=== PATIENT | female | born 1975 | race Caucasian/White ===

== ENCOUNTER 2020-08-12 16:03 | Outpatient (CLI) | payer BC, SELFPAY | END 2020-08-12 16:04 | disposition home or self-care (01) | LOC: ANHCOVIDVC 16:03 | PROVIDERS: PCP Family Medicine | DX: Z23 Encounter for immunization (principal) | CPT/HCPCS: 0001A; 91300 ==

== ENCOUNTER 2020-08-21 08:07 | Emergency (ER) | payer OTHER, BC, SELFPAY ==
[2020-08-21 08:13] VITALS: BP 170/87; PULSE 84; RESP 16; TEMP 37.2; O2SAT 98
--- NOTE | 2020-08-21 08:41 | ED.WOUNDLAC ---
HPI - Wound/Laceration General Chief Complaint: Wound/Laceration Stated Complaint: lt hand finger laceration Time Seen by Provider: 08/21/20 08:24 Source: patient and RN notes reviewed Mode of arrival: ambulatory Limitations: no limitations History of Present Illness HPI narrative: Patient presents today complaining of a laceration to her left second finger that occurred just prior to arrival on the very large newspaper stuffer while at work at [employer]. Wound was cleaned prior to arrival, but patient sought treatment today because it would not stop bleeding. She is currently pain-free. Up-to-date on tetanus vaccine. Denies numbness or tingling in the finger. Related Data Home Medications Medication Instructions Recorded Confirmed hydrochlorothiazide 12.5 mg PO DAILY 08/21/20 08/21/20 Allergies Allergy/AdvReac Type Severity Reaction Status Date / Time Penicillins Allergy Unknown Pt does Verified 08/21/20 08:09 not remember reaction Review of Systems Review of Systems: Narrative: CONSTITUTIONAL: Denies body aches, fever, chills, or sweats. EYES: Denies visual changes, redness, or discharge. ENT: Denies rhinorrhea, congestion, sore throat, or otalgia. CARDIOVASCULAR: Denies chest pain, palpitations, or edema. RESPIRATORY: Denies cough or dyspnea. GASTROINTESTINAL: Denies abdominal pain, nausea, vomiting, or diarrhea. GENITOURINARY: Denies dysuria or hematuria. SKIN: Denies rash, itching. Laceration to left second finger MUSCULOSKELETAL: Denies back pain, joint pain, or myalgia. NEUROLOGIC: Denies headache, numbness, tingling, or weakness. PSYCH: Denies depression or anxiety. [facility] Surgical History Surgical History Hx of cholecystectomy Family History Family History Mother Diabetes mellitus Family history of glaucoma Hypertension Family history of cardiovascular disease Cerebrovascular accident Father Family history of glaucoma Hypertension Grandparent Family history of glaucoma Hypertension Family history of cardiovascular disease Social History Social History Smoking status: Never smoker Alcohol intake: current Comments At time of signature, I have reviewed and agree with nursing past medical, surgical, social and family history unless otherwise noted. Please see nursing chart for further information. There is no relevant family history pertinent to the presenting complaint Exam Narrative: Exam Narrative: GENERAL: Well-appearing, well-nourished, and in no acute distress. HEAD: Normocephalic, atraumatic. EYES: EOMI. No redness or drainage. Conjunctivae normal. ENT: Mucous membranes pink and moist. NECK: Normal AROM. CHEST: No respiratory distress. EXTREMITIES: Normal range of motion. No edema. SKIN: Warm, dry, no rash. Capillary refill normal. Normal skin turgor. 1.5 cm partial-thickness flap laceration to the tip of the left second finger with no active bleeding. Distal sensation intact. Capillary refill normal. Full AROM. No nail involvement. NEURO: No focal deficits. Alert and oriented x3. Gait steady. PSYCH: Normal affect. No signs of depression or anxiety. Course Vital Signs Vital signs: Vital Signs Temperature 98.9 F 08/21/20 08:13 Pulse Rate 84 08/21/20 08:13 Respiratory Rate 16 08/21/20 08:13 Blood Pressure 170/87 H 08/21/20 08:13 Pulse Oximetry 98 08/21/20 08:13 Temperature 98.9 F 08/21/20 08:13 Pulse Rate 84 08/21/20 08:13 Respiratory Rate 16 08/21/20 08:13 Blood Pressure 170/87 H 08/21/20 08:13 Pulse Oximetry 98 08/21/20 08:13 Reviewed. Pt has been instructed to follow up with her PCP regarding her elevated blood pressure today. Procedures Laceration Laceration 1: Date: 08/21/20 Time: 08:41 Site: [facility]
[2020-08-21 08:45] VITALS: BP 140/80
== END 2020-08-21 08:45 | disposition home or self-care (01) ==
PROVIDERS: Emergency Provider Nurse Practitioner; PCP Family Medicine
DX: S61.211A Laceration without foreign body of left index finger without damage to nail, initial encounter (principal); W27.8XXA Contact with other nonpowered hand tool, initial encounter; Y99.0 Civilian activity done for income or pay; Y92.59 Other trade areas as the place of occurrence of the external cause; E78.00 Pure hypercholesterolemia, unspecified; E11.9 Type 2 diabetes mellitus without complications; E03.9 Hypothyroidism, unspecified
CPT/HCPCS: 12001; 99212; G0463

== ENCOUNTER 2020-09-02 16:01 | Outpatient (CLI) | payer BC, SELFPAY | END 2020-09-02 16:02 | disposition home or self-care (01) | LOC: ANHCOVIDVC 16:01 | PROVIDERS: PCP Family Medicine | DX: Z23 Encounter for immunization (principal) | CPT/HCPCS: 0002A; 91300 ==

== ENCOUNTER 2021-04-27 13:53 | Emergency (ER) | payer BC, SELFPAY ==
--- NOTE | ~2021-04-27 | XR_ITS ---
EXAMINATION: XR chest 1V portable DATE: 04/27/2021 16:46 INDICATION: Flushing. Acid reflux. TECHNIQUE: A single frontal view of the chest was obtained. COMPARISON: CT abdomen and pelvis 12/15/2014 FINDINGS: The chest demonstrates clear lungs without pneumonia, pleural effusion, or pneumothorax. Th e heart size is normal. IMPRESSION: 1. No acute cardiopulmonary disease. Reviewed, dictated and finalized at location A. UP AND LAY OUT INSPECTOR
[2021-04-27 14:08] VITALS: BP 148/81; PULSE 95; RESP 20; TEMP 36.9; O2SAT 96
--- NOTE | 2021-04-27 14:15 | PC.NURSE ---
triage vs documented in vs area of chart. per EDP/Adrien, no orders given, do not start cp protocol
--- NOTE | 2021-04-27 16:31 | ECG_ITS ---
Measurements Intervals [place] Rate: 96 P: 33 FL: 143 QRS: 49 QRSD: 101 T: 31 QT: 333 QTc: 422 Interpretive Statements SINUS RHYTHM NORMAL ECG Electronically Signed On 04-27-2021 16:34:39 WET MILLING WHEEL OPERATOR by Damian Young D.O.
[2021-04-27] MEDS: BELLADONNA ALK/PHENOB ELIX 10 ML, MAG HYDROX/ALUMINUM HYD/SIMETH 30 ML, LIDOCAINE HCL 2... PO (17:23)
[2021-04-27 17:44] LABS: Basophils Percent Auto 0.3 % (0.2-1.2); Eosinophils Absolute Auto 0.1 K/mm3 (0-0.3); Hematocrit 39.7 % (37.0-47.0); Immature Granulocyte Absolute 0.06 K/mm3 (0.00-0.031); Immature Granulocyte Percent A 0.4 % (0-0.5); Lymphocytes Absolute Auto 2.87 K/mm3 (0.9-3.2); Lymphocytes Percent Auto 21.5 % (18.3-44.2); Mean Corpuscular HGB Conc 35.3 g/dl (32-36); Mean Corpuscular Hemoglobin 27.8 pg (26-34); Mean Corpuscular Volume 78.8 fl (80-100); Mean Platelet Volume 8.3 fl (7.4-10.4); Monocytes Absolute Auto 0.7 K/mm3 (0.1-0.6); Monocytes Percent Auto 5.1 % (2.6-8.5); Neutrophils Absolute Auto 9.6 K/mm3 (1.3-6.7); Neutrophils Percent Auto 71.7 % (45.5-73.1); Platelet Count Result 263 k/mm3 (150-375); Red Blood Count 5.04 M/mm3 (4.2-5.4); Red Cell Distribution Width 12.8 % (11.5-14.5); White Blood Count 13.3 K/mm3 (4.5-10.0)
[2021-04-27 17:52] VITALS: BP 138/89; PULSE 95; RESP 16; O2SAT 96
[2021-04-27 17:58] LABS: Alanine Aminotransferase 24 U/L (4-35); Albumin Level 4.4 g/dL (3.5-5.1); Alkaline Phosphatase 125 U/L (38-126); Anion Gap 10 mmol/L (8-16); Aspartate Amino Transferase 28 U/L (14-36); Bilirubin,Total 0.5 mg/dL (0.2-1.3); Blood Urea Nitrogen 13 mg/dL (7-17); Calcium 9.5 mg/dL (8.4-10.2); Carbon Dioxide 22 mmol/L (22-30); Chloride 99 mmol/L (98-107); Estimated CRCL calculation 171 ml/min; Estimated Glomerular Filt Rate > 60; Glucose 138 mg/dL (65-110); Potassium 3.8 mmol/L (3.4-5.0); Sodium 131 mmol/L (137-145)
[2021-04-27 18:09] LABS: Troponin I < 0.012 ng/mL (0.000-0.034)
[2021-04-27 18:17] LABS: Lipase 47 U/L (23-300)
[2021-04-27 18:39] LABS: Add Urine Microscopic? YES; Appearance Urine Cloudy (Clear); Bacteria Urine Trace /hpf; Bilirubin Urine Negative (Negative); Blood Urine Negative (Negative); Color Urine Yellow (Yellow); Glucose Urine UA Negative (Negative); Ketones Urine Negative (Negative); Leukocyte Esterase Ur Negative LEU/UL (Negative); Mucus Urine Rare /lpf; Nitrate Urine Negative (Negative); Protein Urine Negative (Negative); Specific Grav Ur 1.017 (1.001-1.035); Squamous Epithelial Cell Urine Moderate /hpf (Few); Urobilinogen Urine Negative mg/dL (<2.0); WBC Urine 0-3 /hpf
--- NOTE | 2021-04-27 18:56 | ED.GENADULT ---
HPI - General Adult General Chief complaint: Anxiety Stated complaint: acid reflux, feels like heart racing Time Seen by Provider: 04/27/21 16:03 Source: patient Mode of arrival: ambulatory Limitations: no limitations History of Present Illness HPI narrative: Patient is a 45-year-old female presenting with chief complaint of feeling flushed and feeling acid reflux which has been worsened over the past 2 weeks. Patient reports yesterday her reflux was so intense that caused her to vomit twice. She always noticed that it worsens after eating. She reports today she was feeling flushed and fell off. She reports that she looked at her apple watch and noted that her heart rate was 90 to 100 bpm while at rest so she became concerned. So she called her primary care provider and they instructed her to come to the emergency department for evaluation. Patient reports this caused her to feel panicked and tearful. Patient denies ever having any chest pain, shortness of breath, syncope, lethargy, neurological deficit. Patient denies any chest pain presently. Related Data Allergies Allergy/AdvReac Type Severity Reaction Status Date / Time Penicillins Allergy Unknown Pt does Verified 02/26/21 15:06 not remember reaction Review of Systems Review of Systems: CONSTITUTIONAL: Reports feeling/denies fever, chills, or sweats. EYES: Denies visual changes, redness, or discharge. ENT: Denies rhinorrhea, congestion, sore throat, or otalgia. CARDIOVASCULAR: denies chest pain, palpitations, or edema. RESPIRATORY: Denies cough or dyspnea. GASTROINTESTINAL: Reports reflux denies abdominal pain, nausea, vomiting, or diarrhea. GENITOURINARY: Denies dysuria or hematuria. SKIN: Denies rash or itching. MUSCULOSKELETAL: Denies back pain, joint pain, or myalgia. NEUROLOGIC: Denies headache, numbness, dizziness, or weakness. PSYCHIATRIC: Denies anxiety or depression. PMFSH Surgical History Surgical History Hx of cholecystectomy Family History Family History Mother Diabetes mellitus Family history of glaucoma Hypertension Family history of cardiovascular disease Cerebrovascular accident Father Family history of glaucoma Hypertension Grandparent Family history of glaucoma Hypertension Family history of cardiovascular disease Social History Social History (Updated 02/26/21 @ 15:07 by Shena Aervalo [facility]) Smoking status: Never smoker Alcohol intake: current Exam Narrative: GENERAL: Well-appearing, well-nourished, and in no acute distress. HEAD: Normocephalic, atraumatic. EYES: PERRLA and EOMI. ENT: Nares clear, no rhinorrhea or epistaxis. Mucous membranes moist. Oropharynx without tonsillar hypertrophy exudate or other lesions. Bilateral TMs pearly serrano nonbulging NECK: Supple. No adenopathy or masses. CHEST: Nontender to palpation. Clear to auscultation. No respiratory distress. No wheezes rales or rhonchi HEART: Regular rate and rhythm. No murmur heard. Normal peripheral pulses. Nontachycardic. ABDOMEN: Soft, nontender, nondistended, normal active bowel sounds. EXTREMITIES: Normal range of motion. No edema. SKIN: Warm, dry, no rash. NEURO: No focal deficits. Alert and oriented x3. No speech abnormalities or facial asymmetry. PSYCH: Normal mood and affect. Course Vital Signs Vital signs: Vital Signs Temperature 98.5 F 04/27/21 14:08 Pulse Rate 95 04/27/21 14:08 Respiratory Rate 20 04/27/21 14:08 Blood Pressure 148/81 H 04/27/21 14:08 Pulse Oximetry 96 04/27/21 14:08 Temperature 98.5 F 04/27/21 14:08 Pulse Rate 95 04/27/21 17:52 Respiratory Rate 16 04/27/21 17:52 Blood Pressure 138/89 04/27/21 17:52 Pulse Oximetry 96 04/27/21 17:52 Medical Decision Making [facility] Narrative Medical decision making narrative: Patient has not had any chest pain or shor
== END 2021-04-27 19:16 | disposition home or self-care (01) ==
PROVIDERS: Physician Assistant; Emergency Provider Emergency Medicine; PCP Family Medicine
DX: K21.9 Gastro-esophageal reflux disease without esophagitis (principal); F41.9 Anxiety disorder, unspecified
CPT/HCPCS: 36415; 71045; 80053; 81001; 83690; 84484; 85025; 93005; 99284; A9270

== ENCOUNTER 2023-05-25 15:41 | Outpatient (CLI) | payer BC, SELFPAY ==
--- NOTE | ~2023-05-25 | MM_ITS ---
EXAMINATION: MM screening mai BI w craig HISTORY: Screening TECHNIQUE: Craniocaudal and mediolateral oblique 3-D tomosynthesis images were obtained and synthetic 2-D images were generated. CAD analysis was submitted and interpreted. COMPARISON: Comparison to multiple prior studies sequentially, with oldest reviewed study dated 10/28. BREAST PARENCHYMAL COMPOSITION: There are scattered areas of fibroglandular density. FINDINGS: There is no evidence of suspicious mass, calcification, or architectural distortion to sugg est malignancy in either breast. There has been no suspicious interval change. IMPRESSION: 1. No mammographic evidence of malignancy. 2. Recommend routine screening mammography in one year. BI-RADS Category 1: Negative Reviewed, dictated and finalized at location A. ON STAPLER
--- NOTE | ~2023-05-25 | US_ITS ---
EXAMINATION: US thyroid DATE: 05/25/2023 16:09 INDICATION: Nontoxic diffuse goiter. TECHNIQUE: Multiple ultrasound images of the thyroid were obtained. COMPARISON: None. FINDINGS: The right thyroid lobe measures 4.5 x 1.5 x 1.8 cm. The left thyroid lobe measures 4.0 x 1.1 x 1.6 c m. In the left thyroid lobe, there is a 5 mm solid, hypoechoic, wider than tall nodule with smooth m argin without echogenic foci (TI-RADS TR4). In the right thyroid lobe, there is a 16 mm solid, hypoec hoic, wider than tall nodule with ill-defined margin without echogenic foci (TR4). In the right thyro id lobe, there is a 14 mm solid, hypoechoic, wider than tall nodule with ill-defined margin without e chogenic foci (TR4). In the right thyroid lobe, there is an 8 mm solid, very hypoechoic, wider than t all nodule with smooth margin without echogenic foci (TR4). IMPRESSION: 1. Multinodular goiter. Ultrasound-guided fine-needle aspiration of the 16 mm right thyroid nodule is recommended. Reviewed, dictated and finalized at location A. OMER SERVICE OPERATOR IMPRESSION: 1. Multinodular goiter. Ultrasound-guided fine-needle aspiration of the 16 mm r ight thyroid nodule is recommended.
== END 2023-05-25 15:42 ==
PROVIDERS: PCP Family Medicine; Visit Provider Family Medicine
DX: Z12.31 Encounter for screening mammogram for malignant neoplasm of breast (principal); E04.2 Nontoxic multinodular goiter
CPT/HCPCS: 76536; 77063; 77067

== ENCOUNTER 2023-05-30 08:21 | Outpatient (CLI) | payer BC, SELFPAY ==
[2023-05-30 12:18] LABS: Thyroid Stimulating Hormone Reflex 0.072 uIU/mL (0.465-4.68)
== END 2023-05-30 08:22 | disposition home or self-care (01) ==
LOC: ANHGOSHLAB 08:24
PROVIDERS: PCP Family Medicine; Visit Provider Family Medicine
DX: Z13.29 Encounter for screening for other suspected endocrine disorder (principal)
CPT/HCPCS: 36415; 84439; 84443; 84480

== ENCOUNTER 2023-06-23 12:32 | Outpatient (CLI) | payer BC, SELFPAY ==
--- NOTE | ~2023-06-23 | US_ITS ---
EXAMINATION: US FNA w image guidance DATE: 06/23/2023 13:37 INDICATION: Nontoxic single right thyroid nodule TECHNIQUE: A time-out was performed to verify the patient's name, date of , and procedure to be performed . The procedure and its benefits and risks were discussed with the patient. Risks specifically discus sed included bleeding and infection. The patient understood the risks and agreed to proceed. The neck was prepped and draped in the usual sterile manner. 3 mL 1% lidocaine was used for local anesthesia . 6 passes were made with a 25G needle into the lesion. Appropriate needle location was documented with continuous sonographic guidance. A sterile bandage was applied. There were no immediate compli cations. FINDINGS: Grayscale ultrasound images demonstrate biopsy needles advanced into the 1.6 cm TI RADS 4 right thyro id nodule of concern. IMPRESSION: 1. Successful ultrasound-guided fine needle aspiration of a 1.6 cm TI RADS 4 right thyroid nodule of concern. Reviewed, dictated and finalized at location A. ATING MANAGER IMPRESSION: 1. Successful ultrasound-guided fine needle aspiration of a 1.6 cm TI RADS 4 r ight thyroid nodule of concern.
== END 2023-06-23 12:33 | disposition home or self-care (01) ==
LOC: ANHIMG 12:33
PROVIDERS: PCP Family Medicine; Visit Provider Family Medicine
DX: E04.1 Nontoxic single thyroid nodule (principal)
CPT/HCPCS: 10005; 88172; 88173; 88305

== ENCOUNTER 2023-10-03 15:31 | Outpatient (CLI) | payer BC, SELFPAY ==
[2023-10-03 19:35] LABS: Thyroid Stimulating Hormone 0.463 uIU/mL (0.465-4.680)
[2023-10-03 19:59] LABS: Free T4 Free Thyroxine 1.91 ng/mL (0.78-2.19)
== END 2023-10-03 15:32 | disposition home or self-care (01) ==
LOC: ANHGOSHLAB 15:32
PROVIDERS: PCP Family Medicine; Visit Provider Family Medicine
DX: E03.9 Hypothyroidism, unspecified (principal)
CPT/HCPCS: 36415; 84439; 84443

== ENCOUNTER 2024-08-02 05:16 | Day surgery (SDC) | payer OTHER, SELFPAY ==
[2024-07-17 10:44] VITALS: BMI 36.3
--- OUTSIDE RECORDS SUMMARY | 2024-08-02 05:20 | XMS_ITS | Clinical Summary ---
Author Organization [facility] Address [address] [place] [address] Care Team Providers Care Blade Filer Name Role Phone Unavailable Primary Care Provider Unavailabl e Source Comments [facility],non-owned Affiliates and Associated Physician Practices is amultiple site organization consisting of ambulatory clinics and hospital sitesin [place], [place], [place] and [place]. This disclosure is being madepursuant to the Care Everywhere program and may not contain all information available regarding this patient. Last updated 18.[facility] [employer] Social History Tobacco Use Types Packs/Day Years Used Date Smoking Tobacco: Never Assessed Sex and Gender Information Value Date Recorded Sex Assigned at Not on file Gender Identity Not on file Sexual Orientation Not on file Plan of Treatment Health Maintenance Due Date Last Done Comments COLOGUARD (AGES 45-75) - COL ON CA SCREENING 1973 COLON MONITORING 1973 COLONOSCOPY - COLON CA SCREENING 1973 CT COLONOGRAPHY - COLON CA SCREENING 1973 Colorectal Cancer Screening 1973 FIT - COLON CA SCREENING 1973 FLEX SIG - COLON CA SCREENING 1973 LIPID TESTING 1973 MAMMOGRAM 1973 PAP SMEAR 1973 HIV SCREENING 1988 HEPATITIS C SCREENING 09/21/1991 DTAP/TDAP/TD VACCINES (1 - Tdap) 1992 HEPATITIS B VACCINE (1 of 3 - 19+ 3-dose series) 1992 PNEUMOCOCCAL VACCINE 50+ (1 of 1 - PCV) 09/26/2023 ZOSTER VACCINE (1 of 2) 09/26/2023 COVID-19 VACCINE (1 - 2023-2 5 season) 2024 INFLUENZA VACCINE (#1) 2024 DEPRESSION SCREENING 06/12/2024 HIB VACCINE Aged Out No longer eligi ble based on patient's age to complete this topic HPV VACCINE Aged Out No longer eligi ble based on patient's age to complete this topic MENINGOCOCCAL (Group B) VACCINE Aged Out No longer eligible based on patient's age to complete this topic MENINGOCOCCAL VACCINE Aged Out No benita ray eligible based on patient's age to complete this topic PNEUMOCOCCAL VACCINE Aged Out No long er eligible based on patient's age to complete this topic
--- OUTSIDE RECORDS SUMMARY | 2024-08-02 05:20 | XMS_ITS | Referral Summary ---
Author Organization [facility] Address [address] [place] [address] Care Team Providers Care Marine Mechanic Name Role Phone Unavailable Primary Care Provider Unavailabl e Source Comments [facility],non-owned Affiliates and Associated Physician Practices is amultiple site organization consisting of ambulatory clinics and hospital sitesin [place], [place], [place] and [place]. This disclosure is being madepursuant to the Care Everywhere program and may not contain all information available regarding this patient. Last updated 18.[facility] Social History Tobacco Use Types Packs/Day Years Used Date Smoking Tobacco: Never Assessed Sex and Gender Information Value Date Recorded Sex Assigned at Not on file Gender Identity Not on file Sexual Orientation Not on file Plan of Treatment Not on file
--- OUTSIDE RECORDS SUMMARY | 2024-08-02 05:20 | XMS_ITS | Patient Health Summary ---
Author Organization [facility] Address [address] [place] [address] Care Team Providers Care Investor Relations Analyst Name Role Phone Unavailable Primary Care Provider Unavailabl e Note from [facility],non-owned Affiliates and Associated Physician Practices is amultiple site organization consisting of ambulatory clinics and hospital sitesin [place], [place], [place] and [place]. This disclosure is being madepursuant to the Care Everywhere program and may not contain all information available regarding this patient. Last updated 18.[facility] Social History Tobacco Use Types Packs/Day Years Used Date Smoking Tobacco: Never Assessed Sex and Gender Information Value Date Recorded Sex Assigned at Not on file Gender Identity Not on file Sexual Orientation Not on file Procedures * GROSS + MICRO EXAM(Performed 03/10/2004) Results * GROSS + MICRO EXAM (03/10/2004 10:27 AM CDT) Result CASE NUMBER [id number] Comment: ORDERING PHYSICIAN UYEN PALOMO SPECIMEN TYPE Placenta Twin Date 03/13/2004 Physician Salomon Gross Description Received in formalin, labeled `placenta twin' and consists of a twin placenta which with membranes and umbilical cord attached weighs 730 gms. The requisition that came with the placenta does not designate placenta as twin A or B, however one umbilical cord has two clips and the other has one clip. The umbilical cord with two clips is designated as twin A, the one with one clip is designated as twin B. Placenta A measures 17 x 15 x 2 cm. The umbilical cord is yellow white, attaches eccentrically at a distance of 2 cm from the nearest margin and measures 26 cm in length x 1.7 cm in diameter. The cut surface of the umbilical cord reveals three vessels. The membranes attached marginally are yellow cesar and semitranslucent. The surface is firm, blue and glistening with tortuous vessels underneath the amnion chorion. The maternal surface is dull red to serrano with intact cotyledons and has no adherent coagula. Placenta A is fused with placenta B and is by a dividing membrane. Placenta B measures 14.5 x 17 x 3.0 cm. The umbilical cord is yellow white, attaches eccentrically at a distance of 6 cm from the nearet margin and measures 28 cm in length x up to 2 cm in diameter. The cut surface reveals three vessels. the membranes attach marginally, are yellow cesar and semitranslucent. The surface is firm blue, glistening with tortuous vessels underneath the amnion chorion. The maternal surface is dull red to serrano with intact cotyledons and has no adherent coagula. Sections submitted as follows A-sections of umbilical cord and membranes from placenta A, B and C-random sections placenta A. D-dividing membrane, E-distribution sales representative sections of umbilical cord and membranes, from placenta B, F and G-random sections of placenta B. /[facility] Microscopic Exam Sections from placenta A show a three vessel umbilical cord with no pathologic changes. The chorioamniotic membranes show no pathologic changes. The chorionic villi are mature, well vascularized with syncytial knots identified. No evidence of villitis or infarction. The stratum basalis shows no pathologic changes. Sections from placenta B reveal a Three vessel umbilical cord with no pathologic changes. The chorioamniotic membranes show no evidence of meconium or inflammation. The chorionic villi are mature, and show no pathologic changes. The dividing membrane shows evidence of a dichorionic diamniotic twin placenta. GM/ Diagnosis I. Twin placenta -- Dichorionic diamniotic fused twin placenta, mature, 730 gms. -- Placenta A - Three vessel umbilical cord with no pathologic changes. - Chorioamniotic membranes with no pathologic changes. -- Placenta B - Three vessel umbilical cord with no pathologic changes. - Chorioamniotic membranes with no pathologic changes. GM/ Decker Operator [facility] Pathologist Jeanette Aly M.D. [place]. 03/15/2004 1456 <1> CPT code 62824 x2 MISCELLANEOUS SAMPLES / Unknown 03/10/2004 10:27 AM CDT 03/11/2004 7:42 AM CDT Historical Provider LAB - PATHOLOGY/C YTOLOGY ORDERABLES
[2024-08-02 06:28] VITALS: BP 145/77; PULSE 77; RESP 16; TEMP 36.2; O2SAT 97
[2024-08-02] MEDS: LACTATED RINGERS 1,000 ML 150 ML IV CONT (06:39)
[2024-08-02 06:41] LABS: Glucose Point of Care 124 mg/dl (65-105)
[2024-08-02 06:43] LABS: BEDSIDEPREGUCG Negative (Negative)
--- NOTE | 2024-08-02 06:49 | WPDANESEPPF ---
Anes - Initial Pre Proc Eval Procedure: Operation Date: 08/02/24 07:30 Proposed Procedures p Screening Colonoscopy - Jarod Topete MD Date/Time: 08/02/24 06:49 Surgeon: Jarod Topete MD Pre Op Diagnosis: screening malignant neoplasm colon Patient Data Age: 48 Gender: F Height: 1.65 m Weight: 101.8 kg Last Vital Signs Temp 97.1 F L 08/02/24 06:28 Pulse 77 08/02/24 06:28 Resp 16 08/02/24 06:28 BP 145/77 H 08/02/24 06:28 Pulse Ox 97 08/02/24 06:28 O2 Del Method Room Air 08/02/24 06:28 Allergies Allergy/AdvReac Type Severity Reaction Status Date / Time Penicillins Allergy Unknown Pt does Verified 08/02/24 06:23 not remember reaction Home Medications ?Medication ?Instructions ?Recorded ?Confirmed ?Type hydrochlorothiazide 12.5 mg tablet 12.5 mg PO DAILY #90 tabs 02/13/24 08/02/24 Rx levothyroxine 112 mcg tablet 112 mcg PO DAILY #90 tabs 03/19/24 08/02/24 Rx metformin 500 mg tablet,extended 1,000 mg (2 x 500 mg) PO DAILY 03/20/24 08/02/24 Rx release 24 hr #180 tabs triamcinolone acetonide 0.1 % 1 applic topical BID #454 grams 04/12/24 07/17/24 Rx topical cream tirzepatide 10 mg/0.5 mL 10 mg (0.5 mL) subcut WEEKLY #2 mL 06/26/24 08/02/24 Rx subcutaneous pen injector lisinopril 10 mg tablet 10 mg PO DAILY #90 tabs 07/01/24 08/02/24 Rx Laboratory Tests 08/02/24 08/02/24 06:37 06:41 POC Capillary Glucose 124 H mg/dl (65-105) POC Urine HCG, Qual Negative (Negative) Patient hx anesthesia problems: none Family hx anesthesia problems: none Results Review: All pre-operative results and documents have been reviewed as part of the pre-operative evaluation. [facility] Surgical History Surgical History Hx of cholecystectomy Family History Family History Mother Diabetes mellitus Family history of glaucoma Hypertension Family history of cardiovascular disease Cerebrovascular accident Father Family history of glaucoma Hypertension Grandparent Family history of glaucoma Hypertension Family history of cardiovascular disease Social History Social History Social History: caffeine daily Smoking packs per day: 1 Smoking cigarettes per day: 20.0 Years smoked: 10 Smoking pack-years: 10.00 Smoking status: Never smoker Tobacco type: cigarettes Alcohol intake: current Drinks per week: 1 Substance use type: does not use Lack of Transportation: No Lack of Food: Never True Current Housing: I Have Housing Concerned About Future Housing: No Difficulty Paying Gas/Electric Bills: No Difficulty Paying for Meds: No Currently Unemployed: No Education: High School Diploma/GED Difficulty w/ Childcare or Family Care: No Living arrangements: with family Spiritual care concerns: No Anes - Eval Final PreProcedure Day of Procedure 08/02/24 06:49 Patient weight: obese Lungs: normal air movement Airway: Mallampati scale class II Neurological: alert and oriented Last oral intake: >/= 8 hours ASA classification: III Emergent: no Anesthetic plan: proceed Anesthesia type and monitoring: general GIVS and standard monitoring Results Review: All pre-operative results and documents have been reviewed as part of the pre-operative evaluation. HTN, DM fsbs 124, obesity. Informed Consent: The patient's anesthetic plan and its attendant risks and benefits were discussed with the patient/family/POA. Questions were solicited and answers provided to the satisfaction of the patient/family/POA.
--- NOTE | 2024-08-02 07:04 | PM.IMHP ---
H&P: HPI History of Present Illness Date/Time: 08/02/24 07:04 Chief Complaint: Screening colonoscopy Narrative: This is the patient's first colonoscopy. There are no GI symptoms and there is no family history of colorectal cancer. Review of Systems Review of Systems: All systems reviewed & are unremarkable except as noted in HPI and below PMFSH Surgical History Surgical History Hx of cholecystectomy Family History Family History Mother Diabetes mellitus Family history of glaucoma Hypertension Family history of cardiovascular disease Cerebrovascular accident Father Family history of glaucoma Hypertension Grandparent Family history of glaucoma Hypertension Family history of cardiovascular disease Social History Social History Social History: caffeine daily Smoking packs per day: 1 Smoking cigarettes per day: 20.0 Years smoked: 10 Smoking pack-years: 10.00 Smoking status: Never smoker Tobacco type: cigarettes Alcohol intake: current Drinks per week: 1 Substance use type: does not use Lack of Transportation: No Lack of Food: Never True Current Housing: I Have Housing Concerned About Future Housing: No Difficulty Paying Gas/Electric Bills: No Difficulty Paying for Meds: No Currently Unemployed: No Education: High School Diploma/GED Difficulty w/ Childcare or Family Care: No Living arrangements: with family Spiritual care concerns: No Meds Home Medications and Allergies Home Medications ?Medication ?Instructions ?Recorded ?Confirmed ?Type hydrochlorothiazide 12.5 mg tablet 12.5 mg PO DAILY #90 tabs 02/13/24 08/02/24 Rx levothyroxine 112 mcg tablet 112 mcg PO DAILY #90 tabs 03/19/24 08/02/24 Rx metformin 500 mg tablet,extended 1,000 mg (2 x 500 mg) PO DAILY 03/20/24 08/02/24 Rx release 24 hr #180 tabs triamcinolone acetonide 0.1 % 1 applic topical BID #454 grams 04/12/24 07/17/24 Rx topical cream tirzepatide 10 mg/0.5 mL 10 mg (0.5 mL) subcut WEEKLY #2 mL 06/26/24 08/02/24 Rx subcutaneous pen injector lisinopril 10 mg tablet 10 mg PO DAILY #90 tabs 07/01/24 08/02/24 Rx Allergies Allergy/AdvReac Type Severity Reaction Status Date / Time Penicillins Allergy Unknown Pt does Verified 08/02/24 06:23 not remember reaction Vital Signs Vital Signs - 24 hr 08/02/24 06:28 Temperature 97.1 F L Pulse Rate 77 Respiratory Rate 16 Blood Pressure 145/77 H Pulse Oximetry 97 Oxygen Delivery Room Air Exam Const: General: cooperative and healthy appearing Resp: Effort & Inspection: normal respiratory effort and able to speak in complete sentences Auscultation: clear to auscultation bilaterally Cardio: Rate: regular rate Rhythm: regular rhythm GI: Inspection: normal to inspection GI Palp: No No hepatosplenomegaly present Auscultation: normal bowel sounds Rectal Exam: deferred Skin: General skin exam: normal color Psych: Appearance: grossly normal Mental Status: mental status grossly normal Assessment and Plan Assessment and plan (1) Encounter for screening colonoscopy: Code(s): Z12.11 - Encounter for screening for malignant neoplasm of colon Status: Acute Assessment and Plan: The patient is deemed a good candidate for the procedure. Consent signed. Will proceed.
[2024-08-02 07:51] VITALS: BP 113/62; PULSE 79; RESP 22; O2SAT 98
[2024-08-02 08:01] VITALS: BP 136/81; PULSE 70; RESP 24; O2SAT 98
[2024-08-02 08:11] VITALS: BP 145/88; PULSE 67; RESP 18; O2SAT 98
== END 2024-08-02 08:19 | disposition home or self-care (01) ==
PROVIDERS: Referring Provider Family Medicine; Visit Provider Internal Medicine Gastroenterology
PROC: 0DJD8ZZ Inspection of Lower Intestinal Tract, Via Natural or Artificial Opening Endoscopic (ICD-10-PCS; CPT 45378; principal; 2024-08-02 07:30)
DX: Z12.11 Encounter for screening for malignant neoplasm of colon (principal); E66.9 Obesity, unspecified; Z68.37 Body mass index [BMI] 37.0-37.9, adult; Z79.84 Long term (current) use of oral hypoglycemic drugs; Z79.85 Long-term (current) use of injectable non-insulin antidiabetic drugs; Z98.890 Other specified postprocedural states; Z90.49 Acquired absence of other specified parts of digestive tract; Z87.891 Personal history of nicotine dependence; Z82.49 Family history of ischemic heart disease and other diseases of the circulatory system
CPT/HCPCS: 45378; 82948; J2003; J2704; J7120

== ENCOUNTER 2024-10-04 08:23 | Outpatient (CLI) | payer OTHER, SELFPAY ==
--- OUTSIDE RECORDS SUMMARY | 2024-10-04 08:33 | XMS_ITS | Clinical Summary ---
Author Organization [facility] Address [address] [place] [address] Care Team Providers Care Results Technician Name Role Phone Unavailable Primary Care Provider Unavailabl e Source Comments [facility],non-owned Affiliates and Associated Physician Practices is amultiple site organization consisting of ambulatory clinics and hospital sitesin [place], [place], [place] and [place]. This disclosure is being madepursuant to the Care Everywhere program and may not contain all information available regarding this patient. 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 Gender Identity Not on file Sexual Orientation [...] SCREENING 1973 LIPID TESTING 1973 MAMMOGRAM 1973 HIV SCREENING 1988 HEPATITIS C SCREENING 09/21/1991 DTAP/TDAP/TD VACCINES (1 - Tdap) 1992 HEPATITIS B VACCINE (1 of 3 - 19+ 3-dose series) 1992 PNEUMOCOCCAL VACCINE 50+ (1 of 1 - PCV) 09/26/2023 ZOSTER VACCINE (1 of 2) 09/26/2023 COVID-19 VACCINE (1 - 2023-2 5 season) 2024 DEPRESSION SCREENING 06/12/2024 INFLUENZA VACCINE (Season Ended) 2025 HIB VACCINE Aged Out No longer eligi ble based on patient's age to complete this topic HPV VACCINE Aged Out No longer eligi ble based on patient's age to complete this topic MENINGOCOCCAL (Group B) VACC INE SHARED DECISION-MAKING Aged Out No longer eligibl e based on patient's age to complete this topic MENINGOCOCCAL GROUPS A/C/Y/W VACCINE Aged Out No longer eligible b ased on patient's age to complete [place] [address] MARVIN
[2024-10-04 18:45] LABS: Alanine Aminotransferase 23 U/L (6-35); Alkaline Phosphatase 117 U/L (38-126); Anion Gap 8 mmol/L (4-12); Aspartate Amino Transferase 36 U/L (14-36); Bilirubin,Total 0.7 mg/dL (0.2-1.3); Blood Urea Nitrogen 13 mg/dL (7-17); Calcium 8.9 mg/dL (8.4-10.2); Carbon Dioxide 31 mmol/L (22-30); Chloride 98 mmol/L (98-107); Cholesterol 178 mg/dL (0-200); Estimated Glomerular Filt Rate > 60; Glucose 87 mg/dL (65-110); HDL Direct 40 mg/dL; Potassium 4.2 mmol/L (3.4-5.0); Sodium 137 mmol/L (137-145); Triglycerides 88 mg/dL (<150)
[2024-10-04 18:47] LABS: Basophils Absolute Auto 0.1 K/mm3 (0.0-0.1); Basophils Percent Auto 0.6 % (0.2-1.2); Eosinophils Absolute Auto 0.1 K/mm3 (0-0.3); Eosinophils Percent Auto 1.1 % (0-4.4); Hematocrit 42.5 % (37.0-47.0); Hemoglobin 13.6 g/dL (12.0-15.0); Immature Granulocyte Absolute 0.04 K/mm3 (0.00-0.031); Immature Granulocyte Percent A 0.4 % (0-0.5); Lymphocytes Absolute Auto 3.04 K/mm3 (0.9-3.2); Lymphocytes Percent Auto 28.3 % (18.3-44.2); Mean Corpuscular Hemoglobin 27.3 pg (26-34); Mean Corpuscular Volume 85.3 fl (80-100); Mean Platelet Volume 8.8 fl (7.4-10.4); Monocytes Absolute Auto 0.7 K/mm3 (0.1-0.6); Monocytes Percent Auto 6.1 % (2.6-8.5); Neutrophils Absolute Auto 6.8 K/mm3 (1.3-6.7); Neutrophils Percent Auto 63.5 % (45.5-73.1); Platelet Count Result 281 k/mm3 (150-375); Red Blood Count 4.98 M/mm3 (4.2-5.4); Red Cell Distribution Width 13.6 % (11.5-14.5); White Blood Count 10.7 K/mm3 (4.5-10.0)
[2024-10-04 18:56] LABS: LDL Cholesterol Direct 98 mg/dL
[2024-10-04 19:03] LABS: Hemoglobin A1C 6.2 % (<5.7)
[2024-10-04 19:09] LABS: Free T4 Free Thyroxine 2.07 ng/dL (0.78-2.19); Vitamin D 25 Hydroxy 22.2 ng/mL
[2024-10-04 19:16] LABS: Thyroid Stimulating Hormone 0.335 uIU/mL (0.465-4.680)
[2024-10-04 19:33] LABS: Creatinine Urine 67.1 mg/dL
[2024-10-04 19:40] LABS: MALB Creatinine Ratio 20.3 mg/g (0-30); Microalbumin Urine Random 13.6 mg/L (0-16.7)
== END 2024-10-04 08:24 | disposition home or self-care (01) ==
LOC: ANHGOSHLAB 08:26
PROVIDERS: Visit Provider Clinical Nurse Specialist
DX: E55.9 Vitamin D deficiency, unspecified (principal); Z13.228 Encounter for screening for other metabolic disorders; Z13.220 Encounter for screening for lipoid disorders; E11.9 Type 2 diabetes mellitus without complications; I10 Essential (primary) hypertension; E03.9 Hypothyroidism, unspecified
CPT/HCPCS: 36415; 80053; 80061; 82043; 82306; 83036; 84439; 84443; 85025